=== PATIENT | male | born 1970 | race Caucasian/White ===

== ENCOUNTER 2017-06-09 13:38 | Emergency (ER) | payer OTHER ==
--- NOTE | 2017-06-09 14:20 | EDM.PDOC ---
ED HPI GENERAL MEDICAL PROBLEM - General Chief Complaint: Chest Pain Stated Complaint: HIGH BLOOD PRESSURE Time Seen by Provider: 06/09/17 13:50 Source of Information: Reports: Patient, RN Notes Reviewed - History of Present Illness INITIAL COMMENTS - FREE TEXT/NARRATIVE: 46-year-old male comes in with feeling of nausea mild EKG arm discomfort and nonspecific dizziness. Chest tightness. No shortness of breath or palpitations. He didn't have this for a while yesterday and then with recurrence today felt he better come in and have this checked out. He has no known personal history for hypertension diabetes or coronary disease. He does not smoke. He does feel better at this time with no current unusual symptomatology. Left Chest Pain Score (Numeric/FACES): 1 - Related Data Allergies Allergy/AdvReac Type Severity Reaction Status Date / Time No Known Allergies Allergy Verified 06/09/17 13:48 Home Meds: Home Meds Lisinopril 10 mg PO DAILY #30 tablet 06/09/17 [Rx] Social & Family History - Tobacco Use Smoking Status *Q: Former Smoker Used Tobacco, but Quit: Yes Month Tobacco Last Used: 6 months ago Tobacco Use Comment: Patient states he's using 2mg Nicorette gum 6x daily Second Hand Smoke Exposure: No - Caffeine Use Caffeine Use: Reports: Coffee - Recreational Drug Use Recreational Drug Use: No ED ROS GENERAL - Review of Systems Review Of Systems: See Below Constitutional: Denies: Fever, Chills, Diaphoresis HEENT: Reports: No Symptoms Respiratory: Denies: Shortness of Breath, Pleuritic Chest Pain Cardiovascular: Denies: Chest Pain, Palpitations GI/Abdominal: Reports: Abdominal Pain (Mild gone), Nausea (Mild, gone). Denies : Diarrhea, Vomiting Musculoskeletal: Reports: Arm Pain (Gone) Skin: Reports: No Symptoms Neurological: Denies: Numbness, Tingling, Trouble Speaking, Weakness ED EXAM, GENERAL - Physical Exam Exam: See Below General Appearance: Alert, No Apparent Distress Eye Exam: Bilateral Eye: PERRL Throat/Mouth: Normal Inspection, Normal Oropharynx Head: No: Facial Swelling Neck: Supple, Full Range of Motion. No: Lymphadenopathy (L), Lymphadenopathy (R ) Respiratory/Chest: No Respiratory Distress, Lungs Clear, Normal Breath Sounds Cardiovascular: Regular Rate, Rhythm GI/Abdominal: Soft, Non-Tender Extremities: Normal Inspection. No: Pedal Edema, Leg Pain Neurological: Alert, Oriented, No Motor/Sensory Deficits EKG INTERPRETATION EKG Date: 06/09/17 Rhythm: NSR [place]: Normal P-Wave: Present QRS: Normal ST-T: Other (Slight ST elevation in V2) Course - Vital Signs Last Recorded V/S: Last Vital Signs Temp 97.2 F 06/09/17 13:48 Pulse 93 06/09/17 13:48 Resp 16 06/09/17 13:48 BP 155/116 H 06/09/17 13:48 Pulse Ox 100 06/09/17 13:48 - Orders/Labs/Meds Orders: Active Orders 24 hr Category Date Time Status EKG Documentation Completion [RC] ASDIRECTED Care 06/09/17 13:58 Active EKG 12 Lead [EK] Stat Ther 06/09/17 13:58 Ordered Labs: Laboratory Tests 06/09/17 06/09/17 Range/Units 14:15 14:15 WBC 9.03 (4.23-9.07) K/mm3 RBC 5.35 (4.63-6.08) M/mm3 Hgb 16.2 (13.7-17.5) gm/L Hct 46.6 (40.1-51.0) % MCV 87.1 (79.0-92.2) fl MCH 30.3 (25.7-32.2) pg MCHC 34.8 (32.2-35.5) g/dl RDW Std Deviation 40.2 (35.1-43.9) fL Plt Count 213 (163-337) K/mm3 MPV 10.5 (9.4-12.3) fl Neut % (Auto) 50.1 (34.0-67.9) % Lymph % (Auto) 37.1 (21.8-53.1) % [place] % (Auto) 8.9 (5.3-12.2) % Eos % (Auto) 3.5 (0.8-7.0) Baso % (Auto) 0.2 (0.1-1.2) % Neut # (Auto) 4.52 (1.78-5.38) K/mm3 Lymph # (Auto) 3.35 (1.32-3.57) K/mm3 [place] # (Auto) 0.80 (0.30-0.82) K/mm3 Eos # (Auto) 0.32 (0.04-0.54) K/mm3 Baso # (Auto) 0.02 (0.01-0.08) K/mm3 Sodium 142 (136-145) mEq/L Potassium 4.0 (3.5-5.1) mEq/L Chloride 104 (98-107) mEq/L Carbon Dioxide 27 (21-32) mEq/L Anion Gap 15.0 (5-15) BUN 20 H (7-18) mg/dL Creatinine 1.0 (0.7-1.3) mg/dL Est Cr Clr Drug Dosing 94.27 mL/min Estimated GFR (MDRD) > 60 (>60) mL/min BUN/Creatinine Ratio 20.0 H (14-18) Glucose 87 (74-106) mg/dL Calcium 10.0 (8.5-10.1) mg/dL Total Bilirubin 1.2 H (0.2-1.0) mg/dL AST 27 (15-37) U/L ALT 51 (16-63) U/L Alkaline Phosphatase 53 (46-116) U/L Troponin I < 0.017 (0.00-0.056) ng/mL Total Protein 7.4 (6.4-8.2) g/dl Albumin 4.3 (3.4-5.0) g/dl Globulin 3.1 gm/dL Albumin/Globulin Ratio 1.4 (1-2) - Re-Assessments/Exams Free Text/Narrative Re-Assessment/Exam: 06/09/17 15:51 EKG was relatively normal, troponin, other labs are normal, did remain hypertensive throughout his stay, will start on lisinopril 10 mg daily. Discharge instructions as documented. Departure - Departure Time of Disposition: 15:35 Disposition: Home, Self-Care 01 Condition: Fair Clinical Impression: Atypical chest pain, Arm paresthesia, left Hypertension Qualifiers: Hypertension type: essential hypertension Qualified Code(s): I10 - Essential ( primary) hypertension Prescriptions: Lisinopril 10 mg PO DAILY #30 tablet Instructions: Chest Wall Pain, [id number], Hypertension, [id number] Referrals: PCP,None [Primary Care Provider] - Forms: ED Department Discharge Additional Instructions: Low-salt healthy cardiac diet, try begin an aerobic exercise program at least 3- 4 times per week, try to lose some of the extra weight that you are now carrying , research the Mediterranean diet, that is a diet high in fruit and vegetables fish, chicken, nuts, cooking with olive oil that has been shown to be healthier than our typical [place] diet. Begin lisinopril 10 mg daily as prescribed for hypertension. Blood pressure cuff, try get a reading once or twice daily and keep a log of that. Follow up with a provider at [facility] or otherwise follow-up with a provider at our [facility], call [phone] for appointment. Return to ED as needed if symptoms worsening in any way. - My Orders Last 24 Hours: My Active Orders 06/09/17 13:58 EKG Documentation Completion [RC] ASDIRECTED EKG 12 Lead [EK] Stat - Assessment/Plan Last 24 Hours: My Active Orders 06/09/17 13:58 EKG Documentation Completion [RC] ASDIRECTED EKG 12 Lead [EK] Stat
== END 2017-06-09 15:43 | disposition home or self-care (01) ==
LOC: JD.ED 13:38
DX: R07.89 Other chest pain (principal); R20.2 Paresthesia of skin; I10 Essential (primary) hypertension; Z87.891 Personal history of nicotine dependence
CPT/HCPCS: 36415; 80053; 84484; 85025; 93005; 93010; 99284; 99284-25